=== PATIENT | male | born 1970 | race Caucasian/White ===

== ENCOUNTER → 2018-01-21 | Outpatient (REF) | payer OTHER ==
[2018-01-21 19:47] LABS: APPEARANCE, URINE CLEAR (CLEAR); BACTERIA, URINE AUTO NEGATIVE (NEGATIVE); BILIRUBIN, URINE AUTO NEGATIVE (NEGATIVE); BLOOD, URINE BLOOD NEGATIVE (NEGATIVE); COLOR, URINE STRAW (YELLOW); GLUCOSE, URINE (UA) AUTO 3+ mg/dL (NEGATIVE); KETONE, URINE AUTO NEGATIVE (NEGATIVE); LEUKOCYTE ESTERASE, URINE AUTO NEGATIVE (NEGATIVE); NITRITE, URINE AUTO NEGATIVE (NEGATIVE); PROTEIN, URINE AUTO NEGATIVE (NEGATIVE); RBC, URINE AUTO 0 /HPF (0-3); SPECIFIC GRAVITY URINE AUTO 1.027 (1.002-1.035); SQUAMOUS EPITHELIAL CELL UR AU 0 /HPF (0-6); UROBILINOGEN, URINE AUTO 0.2 mg/dL (0.0-2.0); WBC, URINE AUTO 1 /HPF (0-3)
[2018-01-21 19:58] LABS: CHLAMYDIA DNA AMPLIFICATION NEGATIVE (NEGATIVE); GC DNA AMPLIFICATION NEGATIVE (NEGATIVE)
== END ==
LOC: M SMT 16:56
DX: N50.819 Testicular pain, unspecified (principal)

== ENCOUNTER → 2020-12-05 | Outpatient (CLI) | payer BC ==
[2020-12-07 23:09] LABS: PSA TOTAL 2.2 ng/mL (0.0-4.0)
== END ==
LOC: M PLALAB 12:26
PROVIDERS: ATTEND Nurse Practitioner Family
DX: R97.20 Elevated prostate specific antigen [PSA] (principal)

== ENCOUNTER 2021-12-18 06:44 | Day surgery (SDC) | payer BC, MEDICAID ==
[~2021-12-18] VITALS: Ht 177.8 cm; Wt 91.1 kg
[~2021-12-18 06:44] MED LIST: ATOR40TA75 PO; ERGO500029 PO; GENTAMICIN 100 MG in IV 1 EA IV ONE; JARD1TAB3 PO; METF-877 PO; NEUR100C PO; OMEP40CA4 PO; TRES1INJ2 SC; TRUL0.5I SC; VANCOMYCIN HCL 1,000 MG, VIAL MATE ADAPTER 1 EACH in D5W 250 ML IV ONE
[2021-12-18] MEDS ORDERED: LR 1,000 ML IV SCH ×2 (06:55→11:20)
[2021-12-18] MEDS ORDERED: MIDAZOLAM INJ 2MG/2ML VIAL (J2250 PER 1MG) As Ordered ONE (07:54)
[2021-12-18] MEDS ORDERED: fentaNYL 100 MCG/2 ML INJECTION As Ordered ONE (07:55)
[2021-12-18] MEDS ORDERED: BACITRACIN OINTMENT 30GM TUBE As Ordered ONE (08:19)
[2021-12-18] MEDS ORDERED: GENTAMICIN SULF 80MG/2ML VIAL As Ordered ONE (08:34)
[2021-12-18] MEDS ORDERED: ONDANSETRON 4MG 2ML VIAL As Ordered ONE (08:55)
[2021-12-18] MEDS ORDERED: dexameTHASONE 4 MG/ML 1ML VIAL (J1100 PER 1MG) As Ordered ONE (08:55)
[2021-12-18] MEDS ORDERED: propofoL 200 MG/20 ML VIAL As Ordered ONE (08:58)
[2021-12-18] MEDS ORDERED: ACETAMINOPHEN 1000MG 100ML IV BTL (OFIRMEV) (J0131 PER 10MG) As Ordered ONE (09:00)
[2021-12-18] MEDS ORDERED: ePHEDrine SULFATE 25 MG/5 ML(5MG/ML) SYRINGE As Ordered ONE (09:18)
[2021-12-18] MEDS ORDERED: SEVOFLURANE INHAL SOLN 250 ML BTL As Ordered ONE (09:33)
[2021-12-18] MEDS ORDERED: HYDROmorphone HCL 2MG/ML 1ML VIAL As Ordered ONE (09:57)
[2021-12-18] MEDS ORDERED: KETOROLAC 60MG 2ML VIAL As Ordered ONE (11:07)
[2021-12-18] MEDS ORDERED: MORPHINE 2 MG/ML 1ML VIAL IV PRN (11:20)
[2021-12-18] MEDS ORDERED: HYDR-3713 PO (11:28)
[2021-12-18] MEDS ORDERED: CEPH500C PO (11:28)
[2021-12-18] MEDS: fentaNYL 100 MCG/2 ML INJECTION IV PRN ×4 (11:40→12:05)
[2021-12-18] MEDS: oxyCODONE 5MG TAB PO PRN ×2 (11:42→12:16)
[2021-12-18] MEDS ORDERED: ONDANSETRON 4MG 2ML VIAL IV ONE (13:25)
[2021-12-18] MEDS ORDERED: INSULIN LISPRO (NovoLOG) PER UNIT SC ONE ×2 (13:35→17:30)
[2021-12-18 14:55] VITALS: BP 125/78
== END 2021-12-18 15:02 | disposition home or self-care (01) ==
LOC: M SDC 06:44
PROVIDERS: ATTEND Urology
DX: N52.9 Male erectile dysfunction, unspecified (principal); N48.6 Induration penis plastica; E78.5 Hyperlipidemia, unspecified; E11.9 Type 2 diabetes mellitus without complications; Z79.84 Long term (current) use of oral hypoglycemic drugs; Z79.899 Other long term (current) drug therapy; K21.9 Gastro-esophageal reflux disease without esophagitis
CPT/HCPCS: 54405; C1813; J0131; J1100; J1170; J1580; J1815; J1885; J2270; J2405; J3010; J3370

== ENCOUNTER → 2023-01-16 | Outpatient (REF) ==
[~2023-01-16] MED LIST changes: +CEPH500C PO; -GENTAMICIN 100 MG in IV 1 EA IV ONE; +HYDR-3713 PO; -VANCOMYCIN HCL 1,000 MG, VIAL MATE ADAPTER 1 EACH in D5W 250 ML IV ONE
== END ==
LOC: M PLAIMG 11:37
PROVIDERS: ATTEND Internal Medicine
DX: M15.0 Primary generalized (osteo)arthritis (principal)